=== PATIENT | female | born 1965 | race Caucasian/White ===

== ENCOUNTER 2017-05-15 12:49 | Emergency (ER) | payer OTHER ==
--- NOTE | ~2017-05-15 | EKG ---
PATIENT: ELIO HERRERA UNIT #: [id number] Ventricular Rate: 64 BPM Atrial Rate: 64 BPM P-R Interval: 162 ms QRS Duration: 110 ms Q-T Interval: 398 ms QTC Calculation(Bezet): 410 ms P [place]: 66 degrees Calculated R [place]: -7 degrees Calculated T [place]: 48 degrees Diagnosis Line: Sinus rhythm with occasional Premature ventricular Diagnosis Line: complexes Diagnosis Line: Incomplete right bundle branch block Diagnosis Line: Borderline ECG Diagnosis Line: No previous ECGs available Diagnosis Line: Confirmed by DUSTIN FRAZIER MD ([id number]) on Diagnosis Line: 05/18/2017 12:44:26 PM INTERPRETING MD: KARIN MARTINEZ
--- NOTE | ~2017-05-15 | CR72 ---
[facility] A Service of [facility] RADIOLOGY TEXT RESULTS PATIENT: ELIO HERRERA LOCATION: SED : 65 UNIT #: [id number] AGE: [address]: Lori Wallace MD SEX: F ORDER DR: [id number] [address] [address] [id number] E MR#: [id number] Acc #: [id number] NAME: ELIO HERRERA. : 1965 SEX: F STUDY DATE/TIME: 05/15/2017 14:00 UNIT: SED ROOM: STUDY DESCRIPTION: CR Chest Single View Portable Attending Physician: Lori Wallace M.D. Ordering Physician: Lori Wallace M.D. Primary Care Physician: Compa Clark D.O. MEDICAL IMAGING REPORT This report is preliminary unless electronic signature is present. EXAM Portable chest, 05/15/2017, 1400 hours. HISTORY Dizziness with near-syncopal episode today. Headache with difficulty focusing, chest tightness today. COMPARISON CT chest, 11/22/2012, and chest x-ray 08/04/2012. FINDINGS Single upright portable view of the chest demonstrates normal heart size. Aortic and hilar contours are normal. Lungs demonstrate slightly increased interstitial markings diffusely with underlying emphysematous change. These findings are felt likely chronic. No effusions seen. IMPRESSION Normal heart size and normally aortic contours. The pulmonary vascularity is normal. There is stable emphysematous change with mild interstitial prominence felt chronic. No effusions. Dictated by... Ina Peralta M.D. THIS IS AN ELECTRONICALLY VERIFIED REPORT Ina Peralta M.D. at 05/15/2017 5:39 PM JESUS/sandra TD: 05/15/2017 17:11 JOB #: [id number] [facility] A Service [facility] RADIOLOGY TEXT RESULTS PATIENT: ELIO HERRERA LOCATION: SED : 65 UNIT #: [id number] AGE: [address]: Lori Wallace MD SEX: F ORDER DR: MEDICAL IMAGING REPORT Page 1 of 1
--- NOTE | ~2017-05-15 | CT71 ---
[facility] A Service [facility] RADIOLOGY TEXT RESULTS PATIENT: ELIO HERRERA LOCATION: SED : 65 UNIT #: [id number] AGE: [address]: Lori Wallace MD SEX: F ORDER DR: [id number] [address] [address] [id number] E MR#: [id number] Acc #: [id number] NAME: ELIO HERRERA. : 1965 SEX: F STUDY DATE/TIME: 05/15/2017 13:53 UNIT: SED ROOM: STUDY DESCRIPTION: CT Head Wo Contrast Attending Physician: Lori Wallace M.D. Ordering Physician: Lori Wallace M.D. Primary Care Physician: Compa Clark D.O. MEDICAL IMAGING REPORT This report is preliminary unless electronic signature is present. EXAM CT head, 05/15/2017 HISTORY Headache and dizzy. Feeling faint, headache, trouble focusing, chest tightness started today. TECHNIQUE CT head performed skull base through vertex without intravenous contrast. This CT exam was performed with one or more of the following radiation dose reduction techniques: automatic exposure control, adjustment of mA and/or kV according to patient size, and iterative reconstruction. COMPARISON No prior CTs of the head for comparison. FINDINGS The brainstem is unremarkable. Cerebellum and cerebral hemispheres show normal kearney matter-white matter differentiation. No hemorrhage. No evidence of acute cortical ischemia. The midline structures are nondisplaced. The basal ganglia are intact. The ventricles, cisterns, and sulci are normal in size and contour. There is no intra- or extraaxial mass effect or abnormal intracranial fluid collection. The intraorbital soft tissues are unremarkable. The visualized paranasal sinuses and mastoid air cells are clear. No fracture. IMPRESSION 1. No acute abnormality is seen in the brain. If the patient has ongoing neurologic symptoms, consider follow up imaging. 2. No fracture. [facility] A Service [facility] RADIOLOGY TEXT RESULTS PATIENT: ELIO HERRERA LOCATION: SED : 65 UNIT #: [id number] AGE: [address]: Lori Wallace MD SEX: F ORDER DR: Dictated by... Joseph Chapman M.D. THIS IS AN ELECTRONICALLY VERIFIED REPORT Joseph Chapman M.D. at 05/15/2017 7:11 PM TOMMIE/chery TD: 05/15/2017 17:42 JOB #: [id number] MEDICAL IMAGING REPORT Page 1 of 1
[~2017-05-15 12:49] MED LIST: HYCODAN60 ML 5MG/ DOB; KEFLEX PO; MOBIC PO; PHENERGAN W/CO120 ML PO; TRIAMCINOLONE A15 G3 EXT; VICODIN 5/500 T1 TAB PO; Z-CLINZ 10 PAC1 EA PO; ZITHROMAX PO
[2017-05-15] MEDS ORDERED: NO MEDICATIONS (12:51)
[2017-05-15 14:06] LABS: URINE SOURCE CLEAN CATCH
[2017-05-15 14:08] LABS: BASOPHIL% 0.6 % (0-2.5); EOSINOPHIL# 0.1 X10e3 (0-0.7); EOSINOPHIL% 1.6 % (0.0-7.0); HEMATOCRIT 41.4 % (35.0-45.0); HEMOGLOBIN 13.8 gm/dL (12.0-16.0); LYMPHOCYTE# 2.2 X10e3 (1.0-3.5); LYMPHOCYTE% 28.8 % (17.0-45.0); MEAN CORPUSCULAR HEMOGLOBIN 28.3 PG (28-34); MEAN CORPUSCULAR HGB CONC 33.3 g/dL (30-36); MEAN PLATELET VOLUME 8.5 FL (6.5-11.5); MONOCYTE# 0.4 X10e3 (0-1.0); MONOCYTE% 5.4 % (3.0-12.0); NEUTROPHIL# 4.9 X10e3 (1.5-7.1); NEUTROPHIL% 63.6 % (40-75); PLATELET COUNT 273 X10e3 (140-420); RED BLOOD COUNT 4.87 X10e (3.90-5.30); RED CELL DISTRIBUTION WIDTH 13.1 % (11.0-15.5); WHITE BLOOD COUNT 7.7 X10e3 (4.0-10.5)
[2017-05-15 14:11] LABS: POC - CKMB 4.4 ng/mL (0.0-7.9); POC - TROPONIN <0.05 ng/mL (<=0.05)
[2017-05-15 14:12] LABS: URINE APPEARANCE CLEAR; URINE BILIRUBIN NEG (NEG); URINE BLOOD TRACE-INTACT (NEG); URINE COLOR YELLOW; URINE GLUCOSE NEG (NORM); URINE KETONE NEG (NEG); URINE LEUKOCYTE ESTERASE NEG (NEG); URINE NITRATE NEG (NEG); URINE PH 6.5 (5-8); URINE PROTEIN NEG (NEG); URINE SPECIFIC GRAVITY <=1.005 (1.003-1.035); URINE UROBILINOGEN 0.2 MG/DL (NORM)
[2017-05-15 14:21] LABS: MICRO INDICATED? YES
[2017-05-15 14:22] LABS: DIFF IND NO
[2017-05-15 14:23] LABS: AMPHETAMINE NEG (NEG); BARBITURATES NEG (NEG); BENZODIAZEPINES NEG (NEG); COCAINE NEG (NEG); MARIJUANA NEG (NEG); OPIATES NEG (NEG); TRICYCLIC ANTIDEPRESSANTS NEG (NEG); U METHADONE NEG (NEG)
[2017-05-15 14:28] LABS: CULTURE INDICATED? NO; URINE BACTERIA NEG (NEG); URINE RBC 0-2 /[HPF] (0-2); URINE WBC 0-2 /[HPF] (0-5)
[2017-05-15 14:33] LABS: ALBUMIN SERUM 4.1 g/dL (3.5-5.0); ALKALINE PHOSPHATASE 80 U/L (32-92); ALT (SGPT) 18 U/L (10-40); AST (SGOT) 23 U/L (10-42); BILIRUBIN,TOTAL 0.6 mg/dL (0.2-2.0); BLOOD UREA NITROGEN 10 mg/dL (9-23); BUN/CREATININE RATIO 16.66; CALCIUM SERUM 9.1 mg/dL (8.4-10.2); CARBON DIOXIDE 25 mmol/L (22-31); CHLORIDE 104 mmol/L (100-111); CREATININE SERUM 0.6 mg/dL (0.6-1.4); GLOM FILT RATE Estimated 104.8 mL/min (>60); GLUCOSE FASTING 82 mg/dL (70-110); POTASSIUM 3.9 mmol/L (3.5-5.1); PROTEIN TOTAL SERUM 7.3 g/dL (6.0-8.3); SODIUM 137 mmol/L (135-145)
[2017-05-15 14:48] LABS: BILIRUBIN, DIRECT <0.1 mg/dL (0.0-0.2); BILIRUBIN,INDIRECT 0.5 mg/dL (0.0-0.9)
[2017-05-15 16:03] LABS: POC - CKMB 3.3 ng/mL (0.0-7.9); POC - TROPONIN <0.05 ng/mL (<=0.05)
== END 2017-05-15 16:21 | disposition home or self-care (01) ==
LOC: SED 12:49
PROVIDERS: Student in an Organized Health Care Education/Training Program
DX: R55 Syncope and collapse (principal); F17.200 Nicotine dependence, unspecified, uncomplicated
CPT/HCPCS: 36415; 70450; 71010; 80048; 80076; 80307; 81003; 82553; 84484; 85025; 93005; 96361; 96374; 99284; J2405